=== PATIENT | female | born 2000 | race Caucasian/White ===

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

== ENCOUNTER 2022-04-12 13:29 | Emergency (ER) | payer OTHER, SELFPAY ==
[2022-04-12 13:30] VITALS: BP 164/113; PULSE 114; RESP 16; TEMP 36.3; O2SAT 100; BMI 25.4
--- NOTE | 2022-04-12 13:50 | ED.VIS.FEGU ---
HPI HPI - Female History of Present Illness Chief Complaint: Vag Bleeding Informant: patient Narrative Narrative: Patient presents with some heavier bleeding with clots. She had some cramping last evening but that is better now. She states her last normal menstrual period was about 2 weeks ago. She has been relatively regular. She occasionally gets heavier bleeding and clots but this seemed a little bit more than her normal. She also had COVID about a week ago. With this she had some myalgias nausea vomiting headache and fever. Those symptoms are gone now. She now has started a menstrual cycle about 2 weeks early. Denies being . Denies any urinary symptoms. No back pain. She has no cramping or pain at this time. She has no bleeding in other areas. No abnormal bruising. No chest pain trouble breathing. No lightheadedness. No near syncope or syncope. PFSH PFSH Medical History no medical history Home Medications naproxen 500 mg tablet (Naprosyn) 500 mg PO BID #10 tabs 04/12/22 [Rx Last Taken Unknown] Allergy/AdvReac Type Severity Reaction Status Date / Time No Known Allergies Allergy Verified 04/12/22 13:31 Social History Smoking Status: Never smoker ROS ROS ED ROS Narrative Patient had multiple symptoms with COVID a week ago. Review of systems is based on current symptoms. Constitutional Constitutional ED: Denies chills or fever(s) ENT ENT ED: Denies rhinorrhea or sore throat Cardiovascular Cardiovascular: Denies chest pain or palpitations Respiratory/Chest Respiratory/Chest: Denies cough or dyspnea Gastrointestinal Gastrointestinal: Denies abdominal pain, nausea or vomiting Genitourinary Genitourinary ED: Reports other Details: See history of present illness. Musculoskeletal Musculoskeletal: Denies arthralgias or myalgias Integumentary Denies rash Neurologic Neurologic: Denies headache(s) Endocrine Endocrinology: Denies polydipsia or polyuria Hematologic/Lymphatic Hematologic/Lymphatic: Denies easy bleeding or easy bruising Allergic/Immunologic Allergic/Immunologic ED: Denies urticaria EXAM Physical Exam Const Vital Signs: 04/12/22 13:30 Temperature 97.3 F L Temperature Source Temporal Pulse Rate 114 H Respiratory Rate 16 Blood Pressure 164/113 H Blood Pressure Mean 130 Pulse Ox 100 Oxygen Delivery Method Room Air Positive well nourished and well developed General Appearance ED: well developed HEENT Reports moist mucous membranes HEENT Narrative: No intraoral petechiae. Eyes Eyes Narrative: Conjunctive is not pale. General Eye ED: Negative for pale conjunctiva Neck no lymphadenopathy Resp normal respiratory effort Auscultation: Negative for rales, rhonchi or wheezes Cardio regular rate and regular rhythm Rate: Negative for bradycardia or tachycardic GI normal to inspection, nondistended, normoactive bowel sounds Back/Spine no CVA tenderness Extremity normal to inspection Extremity Narrative: No abnormal bruising or petechiae. No purpura General Extremety ED: Negative for edema or tenderness General Extremity: Negative for edema Neuro Sensorium / Orientation: alert Psych mental status grossly normal Skin no rashes or lesions noted MDM MDM MDM Narrative Medical decision making narrative: Patient CBC is showing normal hemoglobin. Platelets are normal. White count is low but this might be left over from her recent COVID. Her COVID symptoms are now gone. is also negative. I explained to the patient that this should resolve on her own. We will give her a short course of Naprosyn. If she has heavier bleeding, lightheadedness or other problems she should return. We are also rechecking her vitals. When she came in her blood pressure and heart rate were up. But her heart rate during my exam is much more normal. Lab Data Attestation: I reviewed the patient's lab results. Labs: Laboratory Results - last 24 hr 04/12/22 04/12/22 04/12/22 14:20 14:20 14:50 WBC Cancelled 3.9 L Corrected WBC Cancelled RBC Cancelled 4.37 Hgb Cancelled 12.8 Hct Cancelled 37.9 MCV Cancelled 86.7 MCH Cancelled 29.3 MCHC Cancelled 33.8 RDW Std Deviation Cancelled 38.4 RDW Coeff of Jael Cancelled 11.9 Plt Count Cancelled 216 MPV Cancelled 11.1 Immature Gran % (Auto) Cancelled 0.300 Neut % (Auto) Cancelled 59.5 Lymph % (Auto) Cancelled 31.4 [place] % (Auto) Cancelled 8.2 Eos % (Auto) Cancelled 0.3 Baso % (Auto) Cancelled 0.3 Absolute Neuts (auto) Cancelled 2.3 Absolute Lymphs (auto) Cancelled 1.22 Total Counted Cancelled Neutrophils % (Manual) Cancelled Band Neutrophils % Cancelled Lymphocytes % (Manual) Cancelled Monocytes % (Manual) Cancelled Eosinophils % (Manual) Cancelled Basophils % (Manual) Cancelled Metamyelocytes % Cancelled Myelocytes % Cancelled Promyelocytes % Cancelled Blast Cells % Cancelled Plasma Cell % (Manual) Cancelled Other Cells % Cancelled Nucleated RBC % Cancelled 0 Nucleated RBCs/100 WBC Cancelled Differential Comment Cancelled Diff Path Review Cancelled Hypersegmented Neuts Cancelled Atypical Lymphocytes Cancelled Reactive Lymphocytes Cancelled Smudge Cells Cancelled Toxic Granulation Cancelled Toxic Vacuolation Cancelled Dohle Bodies Cancelled [place] Cancelled Platelet Estimate Cancelled Plt Morphology Comment Cancelled RBC Morphology Cancelled Polychromasia Cancelled Hypochromasia Cancelled Poikilocytosis Cancelled Basophilic Stippling Cancelled Anisocytosis Cancelled Microcytosis Cancelled Macrocytosis Cancelled Spherocytes Cancelled Sickle Cells Cancelled Target Cells Cancelled Tear Drop Cells Cancelled Ovalocytes Cancelled Stomatocytes Cancelled [place] Bodies Cancelled [place] Cells Cancelled Bite Cells Cancelled Crenated Cell Cancelled Acanthocytes (Spur) Cancelled Rouleaux Cancelled Schistocytes Cancelled Serum , Qual NEGATIVE Discharge Plan Triage Chief Complaint: Vag Bleeding ED Provider: José Miguel Canales Dx/Rx/DC Orders Clinical Impression: Vaginal bleeding Instructions: ED Dysfunctional Uterine Bleeding Prescriptions: New naproxen [Naprosyn] 500 mg tablet 500 mg PO BID Qty: 10 0RF Primary Care Provider: Care Physician,No Primary Referrals: Tad Riggs MD [STAFF PHYSICIAN] - 3-5 Days Care Physician,No Primary [Primary Care Provider] - Disposition Disposition: Home, Self Care
[2022-04-12 14:34] LABS: Internal QC Validated? YES +Cl - CLEAR BKGD; Pregnancy, Serum, hCG Quali. NEGATIVE Negative
[2022-04-12 15:00] LABS: Absolute Lymphocyte Count 1.22 X10^3/uL (0.83-4.51); Absolute Neutrophil Count 2.3 X10^3/uL (2.0-7.7); Basophil# 0.01 X10^3/uL; Basophil% 0.3 % (0-1); Eosinophil# 0.01 X10^3/uL; Eosinophils% 0.3 % (0-5); Hematocrit 37.9 % (37-47); Hemoglobin 12.8 g/dL (12.0-15.0); Lymphocyte # 1.22 X10^3/ul (0.83-4.51); Lymphocyte % 31.4 % (19-41); Mean Corp Hgb Conc 33.8 g/dL (32-36); Mean Corpuscular Hgb 29.3 pg (27.0-32.0); Mean Corpuscular Volume 86.7 fL (81-99); Mean Platelet Vol. 11.1 fl (6.2-12.0); Monocyte# 0.32 X10^3/uL; Monocyte% 8.2 % (0-10); NRBC Flagged by Analyzer 0 % (0-5); Neutrophil # 2.31 X10^3/uL (2.7-7.7); Neutrophil % 59.5 % (47-70); Platelet Count 216 K/mm3 (150-450); RBC Distribution Width CV 11.9 % (11.6-14.6); RBC Distribution Width SD 38.4 fl (35.1-43.9); Red Blood Count 4.37 M/mm3 (4.2-5.4); White Blood Count 3.9 K/mm3 (4.4-11.0)
[2022-04-12 15:37] VITALS: BP 132/73; PULSE 62; RESP 17; O2SAT 98
[2022-04-12 15:40] VITALS: BP 132/73; PULSE 73
== END 2022-04-12 15:49 | disposition home or self-care (01) ==
PROVIDERS: Emergency Provider Emergency Medicine; Visit Provider Emergency Medicine
DX: N93.9 Abnormal uterine and vaginal bleeding, unspecified (principal); R50.9 Fever, unspecified
CPT/HCPCS: 36415; 84703; 85025; 99282